=== PATIENT | female | born 2000 | race Caucasian/White ===

== ENCOUNTER 2025-01-17 14:19 | Outpatient (CLI) | payer OTHER, SELFPAY | END 2025-01-17 14:20 | disposition home or self-care (01) | PROVIDERS: PCP Family Medicine; Visit Provider Family Medicine | DX: G43.909 Migraine, unspecified, not intractable, without status migrainosus (principal); Z11.1 Encounter for screening for respiratory tuberculosis; Z13.0 Encounter for screening for diseases of the blood and blood-forming organs and certain disorders involving the immune mechanism | CPT/HCPCS: 85025; 86480 ==